=== PATIENT | female | born 1990 | race Caucasian/White ===

== ENCOUNTER 2016-08-28 12:07 | Emergency (ER) | payer OTHER ==
--- NOTE | 2016-08-28 12:53 | DIAGNOSTIC IMAGING REPORT ---
PROCEDURE: XR CHEST 1 VIEW INDICATION: SHORTNESS OF BREATH TECHNIQUE: Single view chest. 1240 hours COMPARISON: 11/28/2014 FINDINGS: The cardiopulmonary contour and central vasculature are stable, within normal limits. The lungs are clear without focal consolidation, pleural effusion or pneumothorax. The osseous structures are intact. IMPRESSION: 1. No evidence of acute cardiopulmonary disease.
--- NOTE | 2016-08-28 16:21 | DIAGNOSTIC IMAGING REPORT ---
PROCEDURE: CTA THORAX WITH CONTRAST INDICATION: SHORTNESS OF BREATH TECHNIQUE: 76 ml of Isovue 370 was injected intravenously and axial images were obtained of the chest with 3D sagittal and coronal MIP reconstructions. COMPARISON: Chest x-ray Performed the same day FINDINGS: Normal opacification of the pulmonary arterial tree without filling defect. The central pulmonary arteries are normal caliber. Thoracic aorta is normal caliber. The great vessels demonstrates normal branching pattern. Heart size is normal. No pericardial effusion. There is mild right hilar adenopathy and a few mildly prominent AP window lymph nodes. The esophagus is normal in caliber without hiatal hernia. There is a small area of alveolar opacity centrally in the medial aspect of the right lower lobe (posterior segment). Mild right lower lobe peribronchial thickening. No pleural effusions or pneumothorax. The airway is patent and branches normally. Osseous structures are intact. The images obtained of the upper abdomen demonstrate hepatic steatosis, post cholecystectomy changes, and slight hepatomegaly. IMPRESSION: 1. No pulmonary embolus. 2. Small infectious/inflammatory findings in the posterior segment right lower lobe. Findings superimposed on mild bronchial thickening. No pleural effusion. 3. Hepatic steatosis and post cholecystectomy. 4. Findings called to the emergency room.
--- NOTE | 2016-08-28 16:46 | ED NURSING NOTES ---
Clinical Report - Nurses [facility] [address] [place] [address] 08/28/2016 12:22 Patient: DEBBY BROWN TRIAGE Triage time 12:15 Aug 28 2016. Acuity: LEVEL 2. Chief Complaint: DIFFICULTY BREATHING. 12:08/28/16. Alert. No acute distress. SEPSIS SCREEN: Sepsis Screen. Negative (no infection suspected/documented). DARCY COMA SCORE: [place] Coma Scale: 15- eyes open spontaneously (4); best verbal response- oriented x 4 (5); best motor response- obeys commands (6). --12:25 Apolonia Orozco 12:08/28/16. BP: 124/72. HR: 121. RR: 48 (regular and rapid). O2 saturation: 96% on room air. Temp: 98.5 F. End tidal CO2: 23 mmHg. Pain level now 0/10. --12:25 Apolonia Orozco <<STRICKEN ENTRY-- 12:08/28/16. BP: 124/72. HR: 121. RR: 48. O2 saturation: 96%. Temp: 98.5 F. Pain level now 0/10. --12:25 Apolonia Orozco --END STRIKE>> Correction. --13:08 Apolonia Orozco. Weight: 99.7 kg stated. Height/Length: 60 inches Per Patient. BMI: 42.9. --12:24 Apolonia Orozco. Medications Depo-Provera Intramuscular. --12:22 Apolonia Orozco Albuterol Sulfate Inhalation (Has been out for a year). --12:22 Apolonia Orozco. Medication/allergy information source: the patient. --12:25 Apolonia Orozco. Allergies None. --12:22 Apolonia Orozco. History Arrived by EMS. Historian: EMS. Accompanied by family. Primary physician ([facility]). This started today. ( Pt reports she woke up with a cough and then became SOB. Pt reports history of asthma, "I used to have it." 1 yo has been sick at home with a cough.). The patient has had low grade fever of 99 F. The patient has had a cough. No chest pain or back pain. 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 PAST MEDICAL HX: Diabetes mellitus. Asthma. No history of chronic obstructive pulmonary disease, congestive heart failure or hypertension. Immunizations: up-to-date. SOCIAL HX: Heavy tobacco smoker (cigarette)- less than 1 pack per day. Occasional alcohol use. No drug use. FALL RISK ASSESSMENT: Fall risk assessment completed. No fall risk identified. NUTRITIONAL RISK ASSESSMENT: The nutritional risk assessment revealed no deficiencies. FUNCTIONAL ASSESSMENT: Functional assessment: no impairments noted. LEARNING NEEDS ASSESSMENT: The learning needs assessment revealed no barriers. SKIN INTEGRITY ASSESSMENT: Skin integrity risk assessment completed. No skin integrity risk identified. --12:25 Apolonia Orozco. PROBLEMS: Diabetes Mellitus. Asthma. --12:23 Apolonia Orozco. ADDITIONAL SURGERIES: Cholecystectomy. . --12:23 Apolonia Orozco. Assessment The patient states feels the same. --12:25 Apolonia Orozco. Interventions ID band on patient. --12:25 Apolonia Orozco. PHYSICAL ASSESSMENT 12:08/28/16. To room via stretcher. Patient gowned. GENERAL / NEURO / PSYCH: Alert. Oriented X 4. Appears in no acute distress. HEENT: Mucous membranes are pink. RESPIRATORY: Moderate respiratory distress. The patient can speak a few words at a time. Cough. No chest wall tenderness. CVS: Cardiac rhythm: sinus tachycardia. Capillary refill less than 2 seconds. GI / : Abdomen soft and nontender. SKIN: Skin is warm and dry. Normal skin turgor. --12:26 Apolonia Orozco. NURSING PROGRESS NOTES 12:20 08/28/2016 Site #1 started via IV in the right antecubital space with an 20g angiocath, with aseptic technique and good blood return; one attempt. Saline lock flushed with 10 mL saline (Done by VEE Drake). --12:27 Apolonia Orozco 12:22 08/28/2016 Site #2 started via IV in the left antecubital space with an 20g angiocath, with aseptic technique and good blood return; one attempt. Blood drawn: rainbow set. Labeled in the presence of the patient and sent to the lab. Saline lock flushed with 10 mL saline (Done by VEE Minor). --12:27 Apolonia Orozco 12:08/28/16. The plan of care for this patient has been created. Oxygen administered by nasal cannula at 2 liters. print room worker, pulse oximeter, end tidal CO2 monitor and NIBP monitor placed on patient; cardiac cath lab radiology technologist- Lead II and V5; monitor alarms on. Patient gowned. Head of bed elevated. Reassurance given. Two patient identifiers checked. Call light placed in reach. Side rails up x 2. Bed placed in lowest position. Brakes of bed on. Patient ready for evaluation- chart flagged and ED physician and PA notified. --12:26 Apolonia Orozco 12:30 08/28/2016 Started bag #1 1000 mL IV Fluids IV NS (Saline); at 1000 mL/hr over 1 hour(s) via site #2 via IV pump. Allergies verified and confirmed 5 rights. IV patency established. IV site checked: no pain, redness, or swelling. IV flushed thoroughly pre- and post-medication administration. --12:35 Apolonia Orozco 12:32 08/28/2016 Ativan (LORazepam) IVP 1 mg given over 30 second(s) via site #2. Allergies verified, confirmed 5 rights and sedative warning given to the patient and patient's family. IV patency established. IV site checked: no pain, redness, or swelling. IV flushed thoroughly pre- and post-medication administration. IVP given by RN. --12:36 Apolonia Orozco 12:36 08/28/16. Portable chest x-ray. --12:36 Apolonia Orozco EKG time: (12:50 PM). EKG was performed by a keysha and shown to the ED physician. --12:52 Juan Miguel Aguirre 13:07 08/28/16. --13:07 Apolonia Orozco 13:08/28/16. BP: 132/48. HR: 114. RR: 27. O2 saturation: 97% on nasal cannula at 2 liters/minute. End tidal CO2: 26 mmHg. Pain level now: 0/10. --13:07 Apolonia Orozco 13:08 08/28/16. Reassessment after medication administered. Overall patient status is improved- she states feels better. RESPIRATORY: No respiratory distress. CVS: Cardiac rhythm: sinus tachycardia. SKIN: Skin is warm and dry. Skin color within normal limits. --13:08 Apolonia Orozco 13:38 08/28/2016 IV Fluids IV NS Discontinued: bag #1 infused. Total amount infused: 1000 mL. --13:38 Apolonia Orozco 13:38 08/28/16. End tidal CO2: 33mmHg. --13:38 Apolonia Orozco 14:14 08/28/16. BP: 130/80. HR: 115. O2 saturation: 97% on room air. --14:15 Apolonia Orozco 15:07 08/28/16. Patient transported to [place] by stretcher with tech. (15:07 Aug 28 2016). --15:07 Apolonia Orozco 16:02 08/28/16. Care transferred and report given (Gabriel Castrejon RN). --16:02 Apolonia Orozco 16:30 08/28/16. BP: 140/76. HR: 111. RR: 18. O2 saturation: 95% on room air. --16:39 Gabriel Santos RMaria Esther 16:41 08/28/2016 Started 2 gm of Rocephin (CefTRIAXone Sodium) IVPB in bag #1 50 mL; at 50 mL/hr over 20 minute(s) via site #2; Allergies verified and confirmed 5 rights. IV patency established. IV site checked: no pain, redness, or swelling. IV flushed thoroughly pre- and post-medication administration. --16:46 Gabriel Santos RMaria Esther 16:45 08/28/2016 Zithromax PO Tablets 500 mg given. Confirmed 5 rights. --16:50 Gabriel Santos R.N. 17:25 08/28/2016 Acetaminophen (APAP) PO Tablets 650 mg given. Allergies verified and confirmed 5 rights. --18:55 Gabriel Santos R.N. DISPOSITION / DISCHARGE Departure time: 1730. --18:44 Gabriel Santos R.N. <<STRICKEN ENTRY-- 18:25 08/28/16. BP: 150/88. HR: 115. RR: 18. O2 saturation: 97% on room air. Temp: 100.9 F. Pain level now: 07/12. Additional comments: EdMD advised of elevated temp--orders taken. --18:46 Gabriel Santos R.N. --END STRIKE>> Correction --18:46 Gabriel Santos R.N. 17:25 08/28/16. BP: 150/88. HR: 115. RR: 18. O2 saturation: 97% on room air. Temp: 100.9 F. Pain level now: 07/12. --18:51 Gabriel Santos R.N. 17:30. Condition at departure: improved. No learning barriers present. Discharge instructions provided and reviewed with the patient and parent. Reviewed medication(s) (prescription given to pt). Reviewed referral to family practice for followup. Patient verbalized understanding. Written instructions provided in [place]. The patient was discharged by the physician. She was discharged home and accompanied by parent. She left the Emergency Department ambulatory and via private vehicle. Parent driving. --18:53 Gabriel Santos R.N. Locked/Released at 08/28/2016 18:55 by Gabriel Santos R.N.
--- NOTE | 2016-08-28 16:46 | ED CLINICAL REPORT ---
Clinical Report - Physicians/Mid Levels [facility] [address] [place] [address] 08/28/2016 12:22 Patient: DEBBY BROWN Time Seen: 1217. Arrived- By ambulance. Historian- patient and EMS personnel. HISTORY OF PRESENT ILLNESS Chief Complaint: DYSPNEA and HISTORY OF ASTHMA. This started today and is still present. The dyspnea is described as moderate. The patient has had a mild dry cough. No sputum production, orthopnea or chest pain or discomfort. See nurses notes for current asthma threapy. Asthma triggers: infections and irritants. Similar symptoms previously: Recent medical care: The patient was seen recently at another facility in a clinic. ( Pt was sent by the urgent care clinic.). REVIEW OF SYSTEMS No sore throat, sinus drainage, fever, chills or muscle aches. No headache, palpitations, calf pain, nausea or abdominal pain. No diarrhea, black stools, difficulty with urination, skin rash or enlarged lymph nodes. No pedal edema, vomiting, bloody stools or joint pain. The patient has had a nasal discharge. Denies current . All systems otherwise negative, except as recorded above. PAST HISTORY Problems: Diabetes Mellitus. Asthma. Epistaxis. Ureterolithiasis. LNMP - Last Normal Menstrual Period. Near Syncope. Threatened . . Preeclampsia. Additional Surgeries: Cholecystectomy. . Medications: Albuterol Sulfate Inhalation (Has been out for a year). Depo-Provera Intramuscular. Allergies: None. SOCIAL HISTORY Smoker- current status unknown. Occasional alcohol use. No drug use. ADDITIONAL NOTES The nursing notes have been reviewed. PHYSICAL EXAM Vital Signs: 08/28/2016 12:25 BP: 124/72. HR: 121. RR: 48. O2 saturation: 96%. Temp: 98.5 F. End tidal CO2: 23 mmHg. Have been reviewed. Appearance: Alert. Anxious. Patient in mild distress. Eyes: Pupils equal, round and reactive to light. Eyes normal inspection. ENT: Nose normal. Neck: Normal inspection. Neck supple. CVS: Tachycardia. Heart sounds normal. Pulses normal. Respiratory: Mild respiratory distress with tachypnea (PT is able to speak in full sentences, but is breathing very rapidly otherwise.). Breath sounds normal. Abdomen: Soft and nontender. Back: Normal inspection. Skin: Skin warm and dry. Normal skin color. No rash. Normal skin turgor. Extremities: Extremities exhibit normal ROM. No lower extremity edema. Neuro: Oriented X 3. No motor deficit. No sensory deficit. LABS, X-RAYS, AND EKG EKG: EKG time: (1250). No acute ischemia. Rate: 115. Tachycardia. Normal P waves. Normal CHRIS. Normal QRS complex. Normal axis. Normal ST and T waves, QT and QTc. Prior EKG unavailable. The study has been interpreted contemporaneously by me. The study has been independently viewed by me. The EKG appears to be a good tracing. I agree with and confirm the computer reading of the EKG. Rhythm Strip #1: Time: (1223). Sinus tachycardia. Regular rhythm. Narrow QRS complexes. No ectopy. Conduction normal. Normal ST segments and T waves. The study was interpreted by me. Chest X-ray: No acute disease. Normal lung markings present. Normal heart size. Mediastinum normal. Great vessels normal. Soft tissues normal. No infiltrate. No fracture. No bony lesion present. Views: AP (portable). Technique: good. The X-rays were independently viewed by me, interpreted by the radiologist and contemporaneously by me and discussed with the radiologist. Prior films were not available for comparison. Chest CT: Small infiltrate in the right lower lobe. Consistent with pneumonia. Great vessels normal. Mediastinum normal. No fractures noted. No pulmonary embolism. Chest CT performed with contrast. The study was independently viewed by me, interpreted by the radiologist and contemporaneously by me and discussed with the radiologist. Prior studies were not available for comparison. Laboratory Tests: CBC w Diff: (JORDAN: 08/28/2016 12:35) ( MsgRcvd 08/28/2016 12:49) Final results Test Result Flag Units (Reference) WHITE BLOOD COUNT 8.0 K/uL (4.5-11.5) RED BLOOD COUNT 4.80 M/uL (4.00-5.20) HEMOGLOBIN 13.7 gm/dL (12.0-16.0) HEMATOCRIT 41.7 % (36.0-46.0) MEAN CELL VOLUME 87 fL (80-100) MEAN CORPUSCULAR HGB 29 pg (26-34) MEAN CORPUSCULAR HGB CONC 33 g/dL (31-37) RED CELL DISTRIBUTION WIDTH 13.7 % (11.6-14.8) PLATELET COUNT 212 K/uL (150-400) NEUTROPHIL % 59.7 % (50-75) LYMPH % 30.4 % (25-40) MONO % 7.3 % (3-14) EOSINOPHIL % 2.2 % (0-4) BASOPHIL % 0.4 % (0-2) PT with INR: (JORDAN: 08/28/2016 12:35) ( [facility] 08/28/2016 13:12) Final results Test Result Flag Units (Reference) INR 0.9 (0.8-1.2) Low Intensity Therapy: INR 1.5-2.0 PT range 18.5-23.1Mod.Intensity Therapy: INR 2.0-3.0 PT range 23.1-31.5High Intensity Therapy: INR 2.5-3.5 PT range 27.4-35.5High Intensity Therapy 2: INR 3.0-4.0 PT range 31.5-39.3 D-DIMER QUANTITATIVE 0.27 ug/mLFEU (0.27-0.52) The primary value of this quantitative assay relates toits negative predictive value (i.e. exclusion) of pulmonaryembolism/deep vein thrombosis/DIC.Elevated levels of d-dimer may also occur with:, age, cancer, inflammation, liver disease,post-op, infection, hematoma, coronary disease, peripheralarteriopathy, bleeding disorders and thrombolytic treatment.Results should be correlated with other clinical andradiological data.Testing Methodology: Latex Immunoassay BNP: (JORDAN: 08/28/2016 12:35) ( [facility] 08/28/2016 13:11) Final results Test Result Flag Units (Reference) B-TYPE NATRIURETIC PEPTIDE < 5.0 L pg/ml (5-100) Magnesium: (JORDAN: 08/28/2016 12:35) ( Mscvd 08/28/2016 13:20) IP Test Result Flag Units (Reference) GLUCOSE 336 H mg/dL (70-110) BUN 13 mg/dL (7-18) CREATININE 0.8 mg/dL (0.6-1.3) Estimated GFR >60 mL/min Estimated GFR- >60 mL/min Note: Persistent reduction over 3 months in eGFR<60 mL/min/1.73 m2 defines CKD. Patients with eGFR values>=60 mL/min/1.73 m2 may also have CKD if evidence ofpersistent proteinuria. Additional information may be foundat www.[email or web address].org. SODIUM 139 mmol/L (136-145) POTASSIUM 3.3 L mmol/L (3.5-5.1) CHLORIDE 101 mmol/L (98-107) CARBON DIOXIDE 18 L mmol/L (21-32) CALCIUM 9.0 mg/dL (8.5-10.1) TOTAL PROTEIN 7.6 g/dL (6.4-8.2) ALBUMIN 3.7 g/dL (3.3-5.0) BILIRUBIN, TOTAL 0.2 mg/dL (0.0-1.0) ALKALINE PHOSPHATASE 91 U/L (46-116) AST (SGOT) 49 H U/L (15-37) ALT (SGPT) 55 U/L (12-78) MAGNESIUM 1.7 L mg/dL (1.8-2.4) CPK 135 U/L (24-260) TROPONIN I 0.05 ng/mL (0.00-1.5) TROPONIN REFERENCE RANGE:<0.1 NEGATIVE0.1-1.5 INDETERMINANT>1.5 POSITIVE . Pulse Oximetry: 08/28/2016 12:25 O2 saturation: 96%. (FIO2 - room air). Interpretation: normal. PROGRESS AND PROCEDURES Course of Care: PT was evaluated by me, immediately upon arrival in the ED. Pt's O2 saturation was normal, her lungs were clear, and she was speaking comfortably, but her HR and RR were both elevated. I did give the pt a dose of Ativan, and pt's RR did come down to the 30's, but her HR remained in the 120's. CXR was unremarkable. CTA was performed out of concern for the pt's sustained tachycardia and tachypnea, in the face of a normal x-ray and clear lungs. This showed a very small RLL infiltrate, but no PE. Pt was treated with abx for this. I did feel that she was stable for d/c home. Patient counseled in person regarding the patient's stable condition, test results, diagnosis and need for follow-up. Concerns were addressed. Old medical records reviewed. Disposition: Discharged. Condition: stable and improved. CLINICAL IMPRESSION Bacterial pneumonia. Vital signs recorded and reviewed; empiric antibiotics given in the ED. INSTRUCTIONS Do not work tomorrow. Warnings: SEDATIVE MEDICATION: You were given sedative medication during your visit. Do not drive or operate dangerous machinery for 6 hours. GENERAL WARNINGS: Return or contact your physician immediately if your condition worsens or changes unexpectedly, if not improving as expected, or if other problems arise. Your Current Medications: CONTINUE TAKING THE FOLLOWING MEDICATIONS: Albuterol Sulfate Inhalation : Has been out for a year. Depo-Provera Intramuscular. Prescription Medications: Albuterol HFA oral inhaler: inhale 2 puffs every 4 hours as needed for wheezing, difficulty breathing or shortness of breath. Dispense one (1) unit. No refill. Robitussin A-C cough syrup take two (2) teaspoons orally every 6 hours as needed for cough. Dispense one hundred twenty (120) mL. No refill. Substitution is permissible. Zithromax Z-Edi: Take according to package instructions 2 orally today, followed by 1 orally every day for the next 4 days. Total course 5 days. No refills. Substitution is permissible. Follow-up: Follow up with your doctor in seven days if not better. Understanding of the discharge instructions verbalized by patient. (Electronically signed by Merle Aguilar MD 09/02/2016 5:30)
--- NOTE | 2016-08-28 16:46 | ED NURSING NOTES ---
Clinical Report - Nurses [facility] [address] [place] [address] 08/28/2016 12:22 Patient: DEBBY BROWN TRIAGE Triage time 12:15 Aug 28 2016. Acuity: LEVEL 2. Chief Complaint: DIFFICULTY BREATHING. 12:08/28/16. Alert. No acute distress. SEPSIS SCREEN: Sepsis Screen. Negative (no infection suspected/documented). DARCY COMA SCORE: [place] Coma Scale: 15- eyes open spontaneously (4); best verbal response- oriented x 4 (5); best motor response- obeys commands (6). --12:25 Apolonia Orozco 12:08/28/16. BP: 124/72. HR: 121. RR: 48 (regular and rapid). O2 saturation: 96% on room air. Temp: 98.5 F. End tidal CO2: 23 mmHg. Pain level now 0/10. --12:25 Apolonia Orozco <<STRICKEN ENTRY-- 12:08/28/16. BP: 124/72. HR: 121. RR: 48. O2 saturation: 96%. Temp: 98.5 F. Pain level now 0/10. --12:25 Apolonia Orozco --END STRIKE>> Correction. --13:08 Apolonia Orozco. Weight: 99.7 kg stated. Height/Length: 60 inches Per Patient. BMI: 42.9. --12:24 Apolonia Orozco. Medications Depo-Provera Intramuscular. --12:22 Apolonia Orozco Albuterol Sulfate Inhalation (Has been out for a year). --12:22 Apolonia Orozco. Medication/allergy information source: the patient. --12:25 Apolonia Orozco. Allergies None. --12:22 Apolonia Orozco. History Arrived by EMS. Historian: EMS. Accompanied by family. Primary physician ([facility]). This started today. ( Pt reports she woke up with a cough and then became SOB. Pt reports history of asthma, "I used to have it." 1 yo has been sick at home with a cough.). The patient has had low grade fever of 99 F. The patient has had a cough. No chest pain or back pain. 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 PAST MEDICAL HX: Diabetes mellitus. Asthma. No history of chronic obstructive pulmonary disease, congestive heart failure or hypertension. Immunizations: up-to-date. SOCIAL HX: Heavy tobacco smoker (cigarette)- less than 1 pack per day. Occasional alcohol use. No drug use. FALL RISK ASSESSMENT: Fall risk assessment completed. No fall risk identified. NUTRITIONAL RISK ASSESSMENT: The nutritional risk assessment revealed no deficiencies. FUNCTIONAL ASSESSMENT: Functional assessment: no impairments noted. LEARNING NEEDS ASSESSMENT: The learning needs assessment revealed no barriers. SKIN INTEGRITY ASSESSMENT: Skin integrity risk assessment completed. No skin integrity risk identified. --12:25 Apolonia Orozco. PROBLEMS: Diabetes Mellitus. Asthma. --12:23 Apolonia Orozco. ADDITIONAL SURGERIES: Cholecystectomy. . --12:23 Apolonia Orozco. Assessment The patient states feels the same. --12:25 Apolonia Orozco. Interventions ID band on patient. --12:25 Apolonia Orozco. PHYSICAL ASSESSMENT 12:08/28/16. To room via stretcher. Patient gowned. GENERAL / NEURO / PSYCH: Alert. Oriented X 4. Appears in no acute distress. HEENT: Mucous membranes are pink. RESPIRATORY: Moderate respiratory distress. The patient can speak a few words at a time. Cough. No chest wall tenderness. CVS: Cardiac rhythm: sinus tachycardia. Capillary refill less than 2 seconds. GI / : Abdomen soft and nontender. SKIN: Skin is warm and dry. Normal skin turgor. --12:26 Apolonia Orozco. NURSING PROGRESS NOTES 12:20 08/28/2016 Site #1 started via IV in the right antecubital space with an 20g angiocath, with aseptic technique and good blood return; one attempt. Saline lock flushed with 10 mL saline (Done by VEE Drake). --12:27 Apolonia Orozco 12:22 08/28/2016 Site #2 started via IV in the left antecubital space with an 20g angiocath, with aseptic technique and good blood return; one attempt. Blood drawn: rainbow set. Labeled in the presence of the patient and sent to the lab. Saline lock flushed with 10 mL saline (Done by VEE Minor). --12:27 Apolonia Orozco 12:08/28/16. The plan of care for this patient has been created. Oxygen administered by nasal cannula at 2 liters. hearing aid assistant, pulse oximeter, end tidal CO2 monitor and NIBP monitor placed on patient; inker machine- Lead II and V5; monitor alarms on. Patient gowned. Head of bed elevated. Reassurance given. Two patient identifiers checked. Call light placed in reach. Side rails up x 2. Bed placed in lowest position. Brakes of bed on. Patient ready for evaluation- chart flagged and ED physician and PA notified. --12:26 Apolonia Orozco 12:30 08/28/2016 Started bag #1 1000 mL IV Fluids IV NS (Saline); at 1000 mL/hr over 1 hour(s) via site #2 via IV pump. Allergies verified and confirmed 5 rights. IV patency established. IV site checked: no pain, redness, or swelling. IV flushed thoroughly pre- and post-medication administration. --12:35 Apolonia Orozco 12:32 08/28/2016 Ativan (LORazepam) IVP 1 mg given over 30 second(s) via site #2. Allergies verified, confirmed 5 rights and sedative warning given to the patient and patient's family. IV patency established. IV site checked: no pain, redness, or swelling. IV flushed thoroughly pre- and post-medication administration. IVP given by RN. --12:36 Apolonia Orozco 12:36 08/28/16. Portable chest x-ray. --12:36 Apolonia Orozco EKG time: (12:50 PM). EKG was performed by a keysha and shown to the ED physician. --12:52 Juan Miguel Aguirre 13:07 08/28/16. --13:07 Apolonia Orozco 13:08/28/16. BP: 132/48. HR: 114. RR: 27. O2 saturation: 97% on nasal cannula at 2 liters/minute. End tidal CO2: 26 mmHg. Pain level now: 0/10. --13:07 Apolonia Orozco 13:08 08/28/16. Reassessment after medication administered. Overall patient status is improved- she states feels better. RESPIRATORY: No respiratory distress. CVS: Cardiac rhythm: sinus tachycardia. SKIN: Skin is warm and dry. Skin color within normal limits. --13:08 Apolonia Orozco 13:38 08/28/2016 IV Fluids IV NS Discontinued: bag #1 infused. Total amount infused: 1000 mL. --13:38 Apolonia Orozco 13:38 08/28/16. End tidal CO2: 33mmHg. --13:38 Apolonia Orozco 14:14 08/28/16. BP: 130/80. HR: 115. O2 saturation: 97% on room air. --14:15 Apolonia Orozco 15:07 08/28/16. Patient transported to [place] by stretcher with tech. (15:07 Aug 28 2016). --15:07 Apolonia Orozco 16:02 08/28/16. Care transferred and report given (Gabriel Castrejon RN). --16:02 Apolonia Orozco 16:30 08/28/16. BP: 140/76. HR: 111. RR: 18. O2 saturation: 95% on room air. --16:39 Gabriel Santos RMaria Esther 16:41 08/28/2016 Started 2 gm of Rocephin (CefTRIAXone Sodium) IVPB in bag #1 50 mL; at 50 mL/hr over 20 minute(s) via site #2; Allergies verified and confirmed 5 rights. IV patency established. IV site checked: no pain, redness, or swelling. IV flushed thoroughly pre- and post-medication administration. --16:46 Gabriel Santos RMaria Esther 16:45 08/28/2016 Zithromax PO Tablets 500 mg given. Confirmed 5 rights. --16:50 Gabriel Santos R.N. 17:25 08/28/2016 Acetaminophen (APAP) PO Tablets 650 mg given. Allergies verified and confirmed 5 rights. --18:55 Gabriel Santos R.N. DISPOSITION / DISCHARGE Departure time: 1730. --18:44 Gabriel Santos R.N. <<STRICKEN ENTRY-- 18:25 08/28/16. BP: 150/88. HR: 115. RR: 18. O2 saturation: 97% on room air. Temp: 100.9 F. Pain level now: 07/12. Additional comments: EdMD advised of elevated temp--orders taken. --18:46 Gabriel Santos R.N. --END STRIKE>> Correction --18:46 Gabriel Santos R.N. 17:25 08/28/16. BP: 150/88. HR: 115. RR: 18. O2 saturation: 97% on room air. Temp: 100.9 F. Pain level now: 07/12. --18:51 Gabriel Santos R.N. 17:30. Condition at departure: improved. No learning barriers present. Discharge instructions provided and reviewed with the patient and parent. Reviewed medication(s) (prescription given to pt). Reviewed referral to family practice for followup. Patient verbalized understanding. Written instructions provided in Swazi. The patient was discharged by the physician. She was discharged home and accompanied by parent. She left the Emergency Department ambulatory and via private vehicle. Parent driving. --18:53 Gabriel Santos R.N. Locked/Released at 08/28/2016 18:55 by Gabriel Santos R.N.
--- NOTE | 2016-08-28 16:47 | ED ORDER SUMMARY ---
..... Patient: DEBBY BROWN OrderSheet [facility] VisitID: [id number] [place] [address] 26y, F Registration Date/Time: 08/28/2016 ORDER SHEET Weight: 99.7 kg (stated) Allergies: None GENERAL ORDERS: Chest 1V Urgent (12:08/28/2016 Luba HILL) (Ack 12:36 Mart) (12:47 ASchmuck) Maintenance Service Supervisor (Continuous) (12:08/28/2016 Luba HILL) (12:27 ASchmuck) Acetone, Serum Urgent (12:08/28/2016 Luba HILL) (Ack 12:36 Mart) (12:47 ASchmuck) D-Dimer Urgent (12:08/28/2016 Luba HILL) (Ack 12:36 Mart) (12:47 ASchmuck) BNP Urgent (12:08/28/2016 Luba HILL) (Ack 12:36 Mart) (12:47 ASchmuck) Cardiac Panel Stat (12:08/28/2016 Luba HILL) (Ack 12:36 Mart) (12:47 ASchmuck) TSH Urgent (12:08/28/2016 Luba HILL) (Ack 12:36 Mart) (12:47 ASchmuck) PT with INR Urgent (12:08/28/2016 Luba HILL) (Ack 12:36 Mart) (12:47 ASchmuck) Oxygen (2 L/min) (NC) (12:08/28/2016 Luba HILL) (12:27 ASchmuck) Pulse oximeter (12:08/28/2016 Luba HILL) (12:27 ASchmuck) EKG - ER Stat (12:08/28/2016 Luba HILL) (12:52 LTapper) CTA Thorax w Cont (No) (N/A) Urgent (14:45 08/28/2016 Luba HILL) (Ack 14:53 Mart) (15:42 ASchmuck) MEDICATION ORDERS: Zithromax PO 500 mg (NOW) (16:37 08/28/2016 Luba HILL) (16:50 Albert Perez) Acetaminophen PO 650 mg (NOW) (18:53 08/28/2016 Albert Perez verbal order read back to Luba HILL) (18:55 Albert Perez) IV FLUIDS: IV NS : initial bolus 1000 mL (1000 mL/hr), then none - (NOW) (12:25 08/28/2016 Luba HILL) (12:35 ASchmuck) Ativan IV 1 mg (HIGH ALERT MEDICATION, NOW) (12:26 08/28/2016 Luba HILL) (12:36 ASchmuck) Rocephin IV 2 gm/50mL (NOW) (16:37 08/28/2016 Luba HILL) (16:46 Albert Perez) ORDER SHEET NOTES: [Electronically signed by Gabriel Santos R.N. (18:55 08/28/2016)] [Electronically signed by Merle Aguilar MD (05:30 09/02/2016)] [Electronically locked/signed by Gabriel Santos R.N. (18:55 08/28/2016)]
--- NOTE | 2016-08-28 16:47 | ED ORDER SUMMARY ---
..... Patient: DEBBY BROWN OrderSheet [facility] VisitID: [id number] [place] [address] 26y, F Registration Date/Time: 08/28/2016 ORDER SHEET Weight: 99.7 kg (stated) Allergies: None GENERAL ORDERS: Chest 1V Urgent (12:08/28/2016 Luba HILL) (Ack 12:36 Mart) (12:47 ASchmuck) Railroad Worker (Continuous) (12:08/28/2016 Luba HILL) (12:27 ASchmuck) Acetone, Serum Urgent (12:08/28/2016 Luba HILL) (Ack 12:36 Mart) (12:47 ASchmuck) D-Dimer Urgent (12:08/28/2016 Luba HILL) (Ack 12:36 Mart) (12:47 ASchmuck) BNP Urgent (12:08/28/2016 Luba HILL) (Ack 12:36 Mart) (12:47 ASchmuck) Cardiac Panel Stat (12:08/28/2016 Luba HILL) (Ack 12:36 Mart) (12:47 ASchmuck) TSH Urgent (12:08/28/2016 Luba HILL) (Ack 12:36 Mart) (12:47 ASchmuck) PT with INR Urgent (12:08/28/2016 Luba HILL) (Ack 12:36 Mart) (12:47 ASchmuck) Oxygen (2 L/min) (NC) (12:08/28/2016 Luba HILL) (12:27 ASchmuck) Pulse oximeter (12:08/28/2016 Luba HILL) (12:27 ASchmuck) EKG - ER Stat (12:08/28/2016 Luba HILL) (12:52 LTapper) CTA Thorax w Cont (No) (N/A) Urgent (14:45 08/28/2016 Luba HILL) (Ack 14:53 Mart) (15:42 ASchmuck) MEDICATION ORDERS: Zithromax PO 500 mg (NOW) (16:37 08/28/2016 Luba HILL) (16:50 Albert Perez) Acetaminophen PO 650 mg (NOW) (18:53 08/28/2016 Albert Perez verbal order read back to Luba HILL) (18:55 Albert Perez) IV FLUIDS: IV NS : initial bolus 1000 mL (1000 mL/hr), then none - (NOW) (12:25 08/28/2016 Luba HILL) (12:35 ASchmuck) Ativan IV 1 mg (HIGH ALERT MEDICATION, NOW) (12:26 08/28/2016 Luba HILL) (12:36 ASchmuck) Rocephin IV 2 gm/50mL (NOW) (16:37 08/28/2016 Luba HILL) (16:46 Albert Perez) ORDER SHEET NOTES: [Electronically signed by Gabriel Santos R.N. (18:55 08/28/2016)] [Electronically signed by Merle Aguilar MD (05:30 09/02/2016)] [Electronically locked/signed by Gabriel Santos R.N. (18:55 08/28/2016)]
--- NOTE | 2016-09-02 05:30 | ED MED RECONCILIATION SUMMARY ---
Patient: DEBBY BROWN Medication Reconciliation Report [facility] VisitID: [id number] [place] [address] 26y, F Registration Date/Time: 08/28/2016 Weight: 99.7 kg Height/Length: 60 in. BMI: 42.9 ALLERGIES: None The patient's Home Medications are listed below: CONTINUE TAKING THE FOLLOWING MEDICATIONS: Albuterol Sulfate Inhalation, Has been out for a year Depo-Provera Intramuscular The source(s) of the original Home Medication information: patient The following Medications were given to the patient in the Emergency Department: IV NS IV Fluids bolus 0, then 1000 mL/hr, administered: 08/28/2016 12:30:00 PM Ativan [IVP] IVP 1 mg, administered: 08/28/2016 12:32:00 PM Rocephin [IVPB] IVPB bolus 0, then 2 gm 50 mL/hr, administered: 08/28/2016 4:41:00 PM Zithromax [PO] PO 500 mg, administered: 08/28/2016 4:45:00 PM Acetaminophen [PO] PO 650 mg, administered: 08/28/2016 5:25:00 PM The following Medications were prescribed to the patient: Albuterol HFA oral inhaler: inhale 2 puffs every 4 hours as needed for wheezing, difficulty breathing or shortness of breath. Dispense one (1) unit. No refill. -- Merle Aguilar MD Robitussin A-C cough syrup take two (2) teaspoons orally every 6 hours as needed for cough. Dispense one hundred twenty (120) mL. No refill. Substitution is permissible. -- Merle Aguilar MD Zithromax Z-Edi: Take according to package instructions 2 orally today, followed by 1 orally every day for the next 4 days. Total course 5 days. No refills. Substitution is permissible. -- Merle Aguilar MD
--- NOTE | 2016-09-02 05:30 | ED MAR SUMMARY ---
..... Medication Administration Record [facility] [address] [place] [address] Patient: DEBBY BROWN Visit ID: [id number] 26y, F Weight: 99.7 kg Height/Length: 60 in BMI: 42.9 ALLERGIES: None Start 12:30 08/28/2016 Apolonia Orozco,, Stop 13:38 08/28/2016 Apolonia Orozco, Medication Administered: IV NS (SALINE), Dose: IV Fluids over 1 hour(s), Rate: 1000 mL/hr, Dispensed: 1000 mL bag, Site: #2 left AC. Medication Ordered: IV NS : initial bolus 1000 mL (1000 mL/hr), then none - (NOW). Given 12:32 08/28/2016 Apolonia Orozco, Medication Administered: ATIVAN [IVP] (LORAZEPAM), Dose: 1 mg IVP over 30 second(s), Site: #2 left AC. Medication Ordered: Ativan IV 1 mg (HIGH ALERT MEDICATION, NOW). Start 16:41 08/28/2016 Gabriel Santos RGenesisN. Medication Administered: ROCEPHIN [IVPB] (CEFTRIAXONE SODIUM), Dose: 2 gm IVPB over 20 minute(s), Rate: 50 mL/hr, Dispensed: 50 mL bag, Site: #2 left AC. Medication Ordered: Rocephin IV 2 gm/50mL (NOW). Given 16:45 08/28/2016 Gabriel Santos R.N. Medication Administered: ZITHROMAX [PO], Dose: 500 mg Tablets PO. Medication Ordered: Zithromax PO 500 mg (NOW). Given 17:25 08/28/2016 Gabriel Santos R.N. Medication Administered: ACETAMINOPHEN [PO] (APAP), Dose: 650 mg Tablets PO. Medication Ordered: Acetaminophen PO 650 mg (NOW).
--- NOTE | 2016-09-02 05:30 | ED DISCHARGE INSTRUCTIONS ---
Patient: DEBBY BROWN General Instructions [facility] VisitID: [id number] [place] [address] 26y, F Registration Date/Time: 08/28/2016 Bacterial pneumonia. Vital signs recorded and reviewed; empiric antibiotics given in the ED. INSTRUCTIONS Do not work tomorrow. Warnings: SEDATIVE MEDICATION: You were given sedative medication during your visit. Do not drive or operate dangerous machinery for 6 hours. GENERAL WARNINGS: Return or contact your physician immediately if your condition worsens or changes unexpectedly, if not improving as expected, or if other problems arise. Your Current Medications: CONTINUE TAKING THE FOLLOWING MEDICATIONS: Albuterol Sulfate Inhalation : Has been out for a year. Depo-Provera Intramuscular. Prescription Medications: Albuterol HFA oral inhaler: inhale 2 puffs every 4 hours as needed for wheezing, difficulty breathing or shortness of breath. Dispense one (1) unit. No refill. Robitussin A-C cough syrup take two (2) teaspoons orally every 6 hours as needed for cough. Dispense one hundred twenty (120) mL. No refill. Substitution is permissible. Zithromax Z-Edi: Take according to package instructions 2 orally today, followed by 1 orally every day for the next 4 days. Total course 5 days. No refills. Substitution is permissible. Follow-up: Follow up with your doctor in seven days if not better. Understanding of the discharge instructions verbalized by patient. ADDITIONAL INFORMATION Pneumonia (Adult) Pneumonia is an infection deep within the lung, in the small air sacs (alveoli). It may be due to a virus or bacteria and is usually treated with an antibiotic. Severe cases require treatment in the hospital. Milder cases can be treated at home. Symptoms usually start to improve during the first2 days of treatment. Home Care: Rest at home for the first 23 days or until you feel stronger. When resuming activity, dont let yourself become overly tired. Avoid exposure to cigarette smoke (yours or others). You may use acetaminophen (Tylenol) or ibuprofen (Motrin, Advil) to control fever or pain, unless another medicine was prescribed. [NOTE: If you have chronic liver or kidney disease or ever had a stomach ulcer or GI bleeding, talk with your doctor before using these medicines.] (Aspirin should never be used in anyone under 18 years of age who is ill with a fever. It may cause severe liver damage.) Your appetite may be poor so a light diet is fine. Keep well hydrated by drinking 68 glasses of fluids per day (water, sport drinks such as Gatorade, sodas without caffeine, juices, tea, soup, etc.). This will help loosen secretions in the lung, making it easier for you to cough up the phlegm (sputum). If you also have heart or kidney disease, check with your doctor before you drink extra amounts of fluids. Finish all antibiotic medicine prescribed, even if you are feeling better after a few days. Follow Up with your doctor in the next 23 days (or as advised) to be sure you are responding properly to the medicine. [NOTE: If you are age 65 or older, or if you have chronic lung disease (asthma, emphysema or COPD), we recommendthe pneumococcal vaccination and a yearlyinfluenzavaccination(flu-shot) every . Ask your doctor about this.] Get Prompt Medical Attention if any of the following occur: Not getting better within the first 48 hours of treatment Increasing shortness of breath or rapid breathing (over 25 breaths/minute) Coughing up blood or increasing chest pain with breathing Fever of 100.4F (38C) oral or higher, not better with fever medication Increasing weakness, dizziness or fainting Increasing thirst or dry mouth Sinus pain, headache or a stiff neck Chest pain not caused by coughing You have been given the following additional information: Pneumonia (Adult) Do not work tomorrow. (Electronically signed by Merle Aguilar MD 09/02/2016 5:30)
--- NOTE | 2016-09-02 05:30 | ED MED RECONCILIATION SUMMARY ---
Patient: DEBBY BROWN Medication Reconciliation Report [facility] VisitID: [id number] [place] [address] 26y, F Registration Date/Time: 08/28/2016 Weight: 99.7 kg Height/Length: 60 in. BMI: 42.9 ALLERGIES: None The patient's Home Medications are listed below: CONTINUE TAKING THE FOLLOWING MEDICATIONS: Albuterol Sulfate Inhalation, Has been out for a year Depo-Provera Intramuscular The source(s) of the original Home Medication information: patient The following Medications were given to the patient in the Emergency Department: IV NS IV Fluids bolus 0, then 1000 mL/hr, administered: 08/28/2016 12:30:00 PM Ativan [IVP] IVP 1 mg, administered: 08/28/2016 12:32:00 PM Rocephin [IVPB] IVPB bolus 0, then 2 gm 50 mL/hr, administered: 08/28/2016 4:41:00 PM Zithromax [PO] PO 500 mg, administered: 08/28/2016 4:45:00 PM Acetaminophen [PO] PO 650 mg, administered: 08/28/2016 5:25:00 PM The following Medications were prescribed to the patient: Albuterol HFA oral inhaler: inhale 2 puffs every 4 hours as needed for wheezing, difficulty breathing or shortness of breath. Dispense one (1) unit. No refill. -- Merle Aguilar MD Robitussin A-C cough syrup take two (2) teaspoons orally every 6 hours as needed for cough. Dispense one hundred twenty (120) mL. No refill. Substitution is permissible. -- Merle Aguilar MD Zithromax Z-Edi: Take according to package instructions 2 orally today, followed by 1 orally every day for the next 4 days. Total course 5 days. No refills. Substitution is permissible. -- Merle Aguilar MD
--- NOTE | 2016-09-02 05:30 | ED MAR SUMMARY ---
..... Medication Administration Record [facility] [address] [place] [address] Patient: DEBBY BROWN Visit ID: [id number] 26y, F Weight: 99.7 kg Height/Length: 60 in BMI: 42.9 ALLERGIES: None Start 12:30 08/28/2016 Apolonia Orozco,, Stop 13:38 08/28/2016 Apolonia Orozco, Medication Administered: IV NS (SALINE), Dose: IV Fluids over 1 hour(s), Rate: 1000 mL/hr, Dispensed: 1000 mL bag, Site: #2 left AC. Medication Ordered: IV NS : initial bolus 1000 mL (1000 mL/hr), then none - (NOW). Given 12:32 08/28/2016 Apolonia Orozco, Medication Administered: ATIVAN [IVP] (LORAZEPAM), Dose: 1 mg IVP over 30 second(s), Site: #2 left AC. Medication Ordered: Ativan IV 1 mg (HIGH ALERT MEDICATION, NOW). Start 16:41 08/28/2016 Gabriel Santos RGenesisN. Medication Administered: ROCEPHIN [IVPB] (CEFTRIAXONE SODIUM), Dose: 2 gm IVPB over 20 minute(s), Rate: 50 mL/hr, Dispensed: 50 mL bag, Site: #2 left AC. Medication Ordered: Rocephin IV 2 gm/50mL (NOW). Given 16:45 08/28/2016 Gabriel Santos R.N. Medication Administered: ZITHROMAX [PO], Dose: 500 mg Tablets PO. Medication Ordered: Zithromax PO 500 mg (NOW). Given 17:25 08/28/2016 Gabriel Santos R.N. Medication Administered: ACETAMINOPHEN [PO] (APAP), Dose: 650 mg Tablets PO. Medication Ordered: Acetaminophen PO 650 mg (NOW).
== END 2016-08-28 17:30 | disposition home or self-care (01) ==
LOC: ED SRH 12:07
DX: J15.9 Unspecified bacterial pneumonia (principal); E11.9 Type 2 diabetes mellitus without complications; F17.200 Nicotine dependence, unspecified, uncomplicated; Z87.09 Personal history of other diseases of the respiratory system
CPT/HCPCS: 83526; 90100; 90301; 90616; 91320; 91556; 92610; 92720; 93140; 94060; 95059

== ENCOUNTER 2016-10-30 10:17 | Emergency (ER) | payer OTHER ==
--- NOTE | 2016-10-30 11:40 | ED CLINICAL REPORT ---
Clinical Report - Physicians/Mid Levels [facility] [address] [place] [address] 10/30/2016 10:23 Patient: DEBBY BROWN Time Seen: 10:41. Arrived- By private vehicle. Historian- patient. HISTORY OF PRESENT ILLNESS The patient sustained a burn to the right upper extremity - right hand, right middle finger and right ring finger. Chief Complaint: BURN. The injury occurred just prior to arrival. The injury was due to hot oil. It occurred at work. The patient complains of moderate pain. There was no smoke inhalation. Patient did not fall. (Patient was at work at her job at [employer] when she was splashed by hot oil.). REVIEW OF SYSTEMS No difficulty breathing, chest pain, visual disturbance, hearing loss or numbness. No weakness, neck pain, nausea, easy bleeding or abrasions. No hematuria, spine pain or vomiting. No coughing up soot. All systems otherwise negative, except as recorded above. PAST HISTORY Problems: Diabetes Mellitus. Asthma. Epistaxis. Ureterolithiasis. LNMP - Last Normal Menstrual Period. Near Syncope. Gastritis. Threatened . . Additional Surgeries: Cholecystectomy. . Medications: MetFORMIN HCl Oral 500 mg, daily. Albuterol Sulfate Inhalation (Has been out for a year). Depo-Provera Intramuscular. Allergies: None. SOCIAL HISTORY Smoker- current status unknown. Alcohol use. History of drug use: marijuana. ADDITIONAL NOTES The nursing notes have been reviewed. PHYSICAL EXAM Vital Signs: 10/30/2016 10:29 BP: 128/90. HR: 110. RR: 20. O2 saturation: 99%. Temp: 98 F. Pain level now: 8/10. Have been reviewed. Appearance: Alert. Oriented X3. No acute distress. Head: Head atraumatic. Eyes: Pupils equal, round and reactive to light. EOM intact. ENT: Normal external inspection. Neck: Painless ROM. CVS: Pulses normal. Respiratory: No respiratory distress. Back: ROM normal. Skin: No abrasions or lacerations. Right dorsum: small 1st degree burn. Right middle finger: small 2nd degree burn dorsal aspect. Right ring finger: small 2nd degree burn dorsal aspect. Extremities: Extremities exhibit normal ROM. Neuro: No motor deficit. No sensory deficit. (Grossly normal.). LABS, X-RAYS, AND EKG Pulse Oximetry: 10/30/2016 10:29 O2 saturation: 99%. (FIO2 - room air). Interpretation: normal. PROGRESS AND PROCEDURES Course of Care: A Silvadene dressing was placed and the patient's butcher. She did not have any debridable bullae. Patient counseled in person regarding the patient's stable condition, diagnosis and need for follow-up. Concerns were addressed. Old medical records reviewed. Disposition: Discharged. Condition: stable. CLINICAL IMPRESSION Multiple thermal butcher to the dorsum of the right hand, to the right middle finger and to the right ring finger. BSA of 1st degree burn = less than 10% (approximately). BSA of 2nd degree burn = less than 10% (approximately). INSTRUCTIONS Protect area of burn and keep clean. Change dressing daily. You may wash wounds briefly, then dry. Warnings: GENERAL WARNINGS: Return or contact your physician immediately if your condition worsens or changes unexpectedly, if not improving as expected, or if other problems arise. Your Current Medications: CONTINUE TAKING THE FOLLOWING MEDICATIONS: Albuterol Sulfate Inhalation : Has been out for a year. Depo-Provera Intramuscular. MetFORMIN HCl Oral : 500 mg daily. Prescription Medications: Hydrocodone/APAP 5mg / 325mg: take 1 orally every 6 hours as needed for pain. Dispense five (5). No refill. Ibuprofen 800 mg tablets: take 1 tablet orally every 8 hours as needed for pain. Dispense fifteen (15). No refill. Silvadene cream 1% : apply to affected area twice daily until better. Dispense twenty (20) grams. No refill. Substitution is permissible Follow-up: Follow up with your doctor as needed. Understanding of the discharge instructions verbalized by patient. (Electronically signed by Merle Aguilar MD 11/03/2016 22:52)
--- NOTE | 2016-10-30 11:40 | ED ORDER SUMMARY ---
..... Patient: DEBBY BROWN OrderSheet [facility] VisitID: [id number] [address] [place] [address] 26y, F Registration Date/Time: 10/30/2016 ORDER SHEET Weight: 108.8 kg (stated) Allergies: None GENERAL ORDERS: MEDICATION ORDERS: Silvadene Cream Topical (Cream 1 %) 1 application (NOW) (11:38 10/30/2016 Luba HILL) (Ack 11:45 SRoberts R.N.) (12:30 SRoberts R.N.) IV FLUIDS: ORDER SHEET NOTES: [Electronically signed by Noelle Herndon R.N. (12:31 10/30/2016)] [Electronically signed by Merle Aguilar MD (22:52 11/03/2016)] [Electronically locked/signed by Noelle Herndon R.N. (12:31 10/30/2016)]
--- NOTE | 2016-10-30 11:40 | ED NURSING NOTES ---
Clinical Report - Nurses [facility] [address] [place] [address] 10/30/2016 10:23 Patient: DEBBY BROWN TRIAGE Triage time 10:28. Acuity: LEVEL 3. Chief Complaint: BURN FROM HOT LIQUID. Alert. No acute distress. DARCY COMA SCORE: [place] Coma Scale: 15- eyes open spontaneously (4); best verbal response- oriented x 4 (5); best motor response- obeys commands (6). --10:36 Noelle Herndon R.N. 10:29 10/30/16. BP: 128/90. HR: 110. RR: 20. O2 saturation: 99%. Temp: 98 F (oral). Pain level now: 02/09. --10:36 Noelle Herndon R.N. Weight: 108.8 kg stated. Height/Length: 59 inches Per Patient. BMI: 48.5. --10:34 Noelle Herndon R.N. Medications Albuterol Sulfate Inhalation (Has been out for a year). Depo-Provera Intramuscular. --10:29 Noelle Herndon R.N. MetFORMIN HCl Oral 500 mg, daily. --10:34 Noelle Herndon R.N. Medication/allergy information source: the patient. --10:36 Noelle Herndon R.N. Allergies None. --10:29 Noelle Herndon R.N. History Arrived by private vehicle. Historian: patient. Location of injuries: right hand. This occurred just prior to arrival. Occurred at work. 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 Trauma activation: Pre-hospital notification of patient arrival was not received. PAST MEDICAL HX: Tetanus status: up-to-date. Uses depo injections. SOCIAL HX: Light tobacco smoker (cigarette)- less than 1/2 a pack per day. Occasional alcohol use. History of drug use: marijuana. Recently used drugs days ago. FALL RISK ASSESSMENT: Fall risk assessment completed. No fall risk identified. NUTRITIONAL RISK ASSESSMENT: The nutritional risk assessment revealed no deficiencies. FUNCTIONAL ASSESSMENT: Functional assessment: no impairments noted. LEARNING NEEDS ASSESSMENT: The learning needs assessment revealed no barriers. SKIN INTEGRITY ASSESSMENT: Skin integrity risk assessment completed. No skin integrity risk identified. --10:36 Noelle Herndon R.N. PROBLEMS: Pneumonia. Diabetes Mellitus. Asthma. Laceration. Epistaxis. Ureterolithiasis. Abdominal Pain. Near Syncope. Gastritis. --10:30 Noelle Herndon R.N. ADDITIONAL SURGERIES: Cholecystectomy. . --10:30 Noelle Herndon R.N. Interventions ID band on patient. To room. --10:36 Noelle Herndon R.N. PHYSICAL ASSESSMENT GENERAL / NEURO / PSYCH: Alert. Oriented X 4. Appears in no acute distress. RESPIRATORY: Respirations not labored. GI / : Abdomen nontender. EXTREMITIES: Skin intact on the extremities. SKIN: Skin is warm and dry. She has a blister located on the right hand, right second finger, right third finger and right fourth finger. --10:37 Noelle Herndon R.N. NURSING PROGRESS NOTES Cold pack applied. Extremity elevated. Two patient identifiers checked. Call light placed in reach. Side rails up x 1. Bed placed in lowest position. Brakes of bed on. Patient ready for evaluation. --10:37 Noelle Herndon R.N. ( silvedene to right hand and dressed with conform.). --11:39 Amy Natarajan ER Tech1 11:30 10/30/2016 SILVADENE CREAM (Silver Sulfadiazine) Topical 1 application. Allergies verified and confirmed 5 rights. (rt hand). --12:30 Noelle Herndon R.N. DISPOSITION / DISCHARGE No learning barriers present. Discharge instructions provided and reviewed with the patient. Reviewed medication(s) side effects, precautions, dosing and course information. Prescription(s) given to the patient. Patient verbalized understanding. Written instructions provided in Yakut. The patient was discharged home. She left the Emergency Department ambulatory and via private vehicle. Patient driving. Medication list reviewed and validated. --12:28 Noelle Herndon R.N. 11:45 10/30/16. BP: 118/78. HR: 77. RR: 16. O2 saturation: 96% on room air. Temp: deferred. Pain level now: 09/09. 10:29 10/30/16. BP: 128/90. HR: 110. RR: 20. O2 saturation: 99%. Temp: 98 F (oral). Pain level now: 02/09. --12:28 Noelle Herndon R.N. Locked/Released at 10/30/2016 12:31 by Noelle Herndon R.N.
--- NOTE | 2016-10-30 11:40 | ED NURSING NOTES ---
Clinical Report - Nurses [facility] [address] [place] [address] 10/30/2016 10:23 Patient: DEBBY BROWN TRIAGE Triage time 10:28. Acuity: LEVEL 3. Chief Complaint: BURN FROM HOT LIQUID. Alert. No acute distress. DARCY COMA SCORE: [place] Coma Scale: 15- eyes open spontaneously (4); best verbal response- oriented x 4 (5); best motor response- obeys commands (6). --10:36 Noelle Herndon R.N. 10:29 10/30/16. BP: 128/90. HR: 110. RR: 20. O2 saturation: 99%. Temp: 98 F (oral). Pain level now: 02/09. --10:36 Noelle Herndon R.N. Weight: 108.8 kg stated. Height/Length: 59 inches Per Patient. BMI: 48.5. --10:34 Noelle Herndon R.N. Medications Albuterol Sulfate Inhalation (Has been out for a year). Depo-Provera Intramuscular. --10:29 Noelle Herndon R.N. MetFORMIN HCl Oral 500 mg, daily. --10:34 Noelle Herndon R.N. Medication/allergy information source: the patient. --10:36 Noelle Herndon R.N. Allergies None. --10:29 Noelle Herndon R.N. History Arrived by private vehicle. Historian: patient. Location of injuries: right hand. This occurred just prior to arrival. Occurred at work. 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 Trauma activation: Pre-hospital notification of patient arrival was not received. PAST MEDICAL HX: Tetanus status: up-to-date. Uses depo injections. SOCIAL HX: Light tobacco smoker (cigarette)- less than 1/2 a pack per day. Occasional alcohol use. History of drug use: marijuana. Recently used drugs days ago. FALL RISK ASSESSMENT: Fall risk assessment completed. No fall risk identified. NUTRITIONAL RISK ASSESSMENT: The nutritional risk assessment revealed no deficiencies. FUNCTIONAL ASSESSMENT: Functional assessment: no impairments noted. LEARNING NEEDS ASSESSMENT: The learning needs assessment revealed no barriers. SKIN INTEGRITY ASSESSMENT: Skin integrity risk assessment completed. No skin integrity risk identified. --10:36 Noelle Herndon R.N. PROBLEMS: Pneumonia. Diabetes Mellitus. Asthma. Laceration. Epistaxis. Ureterolithiasis. Abdominal Pain. Near Syncope. Gastritis. --10:30 Noelle Herndon R.N. ADDITIONAL SURGERIES: Cholecystectomy. . --10:30 Noelle Herndon R.N. Interventions ID band on patient. To room. --10:36 Noelle Herndon R.N. PHYSICAL ASSESSMENT GENERAL / NEURO / PSYCH: Alert. Oriented X 4. Appears in no acute distress. RESPIRATORY: Respirations not labored. GI / : Abdomen nontender. EXTREMITIES: Skin intact on the extremities. SKIN: Skin is warm and dry. She has a blister located on the right hand, right second finger, right third finger and right fourth finger. --10:37 Noelle Herndon R.N. NURSING PROGRESS NOTES Cold pack applied. Extremity elevated. Two patient identifiers checked. Call light placed in reach. Side rails up x 1. Bed placed in lowest position. Brakes of bed on. Patient ready for evaluation. --10:37 Noelle Herndon R.N. ( silvedene to right hand and dressed with conform.). --11:39 Amy Natarajan ER Tech1 11:30 10/30/2016 SILVADENE CREAM (Silver Sulfadiazine) Topical 1 application. Allergies verified and confirmed 5 rights. (rt hand). --12:30 Noelle Herndon R.N. DISPOSITION / DISCHARGE No learning barriers present. Discharge instructions provided and reviewed with the patient. Reviewed medication(s) side effects, precautions, dosing and course information. Prescription(s) given to the patient. Patient verbalized understanding. Written instructions provided in Greenlandic. The patient was discharged home. She left the Emergency Department ambulatory and via private vehicle. Patient driving. Medication list reviewed and validated. --12:28 Noelle Herndon R.N. 11:45 10/30/16. BP: 118/78. HR: 77. RR: 16. O2 saturation: 96% on room air. Temp: deferred. Pain level now: 09/09. 10:29 10/30/16. BP: 128/90. HR: 110. RR: 20. O2 saturation: 99%. Temp: 98 F (oral). Pain level now: 02/09. --12:28 Noelle Herndon R.N. Locked/Released at 10/30/2016 12:31 by Noelle Herndon R.N.
--- NOTE | 2016-10-30 11:40 | ED ORDER SUMMARY ---
..... Patient: DEBBY BROWN OrderSheet [facility] VisitID: [id number] [address] [place] [address] 26y, F Registration Date/Time: 10/30/2016 ORDER SHEET Weight: 108.8 kg (stated) Allergies: None GENERAL ORDERS: MEDICATION ORDERS: Silvadene Cream Topical (Cream 1 %) 1 application (NOW) (11:38 10/30/2016 Luba HILL) (Ack 11:45 SRoberts R.N.) (12:30 SRoberts R.N.) IV FLUIDS: ORDER SHEET NOTES: [Electronically signed by Noelle Herndon R.N. (12:31 10/30/2016)] [Electronically signed by Merle Aguilar MD (22:52 11/03/2016)] [Electronically locked/signed by Noelle Herndon R.N. (12:31 10/30/2016)]
--- NOTE | 2016-10-30 11:40 | ED CLINICAL REPORT ---
Clinical Report - Physicians/Mid Levels [facility] [address] [place] [address] 10/30/2016 10:23 Patient: DEBBY BROWN Time Seen: 10:41. Arrived- By private vehicle. Historian- patient. HISTORY OF PRESENT ILLNESS The patient sustained a burn to the right upper extremity - right hand, right middle finger and right ring finger. Chief Complaint: BURN. The injury occurred just prior to arrival. The injury was due to hot oil. It occurred at work. The patient complains of moderate pain. There was no smoke inhalation. Patient did not fall. (Patient was at work at her job at [employer] when she was splashed by hot oil.). REVIEW OF SYSTEMS No difficulty breathing, chest pain, visual disturbance, hearing loss or numbness. No weakness, neck pain, nausea, easy bleeding or abrasions. No hematuria, spine pain or vomiting. No coughing up soot. All systems otherwise negative, except as recorded above. PAST HISTORY Problems: Diabetes Mellitus. Asthma. Epistaxis. Ureterolithiasis. LNMP - Last Normal Menstrual Period. Near Syncope. Gastritis. Threatened . . Additional Surgeries: Cholecystectomy. . Medications: MetFORMIN HCl Oral 500 mg, daily. Albuterol Sulfate Inhalation (Has been out for a year). Depo-Provera Intramuscular. Allergies: None. SOCIAL HISTORY Smoker- current status unknown. Alcohol use. History of drug use: marijuana. ADDITIONAL NOTES The nursing notes have been reviewed. PHYSICAL EXAM Vital Signs: 10/30/2016 10:29 BP: 128/90. HR: 110. RR: 20. O2 saturation: 99%. Temp: 98 F. Pain level now: 8/10. Have been reviewed. Appearance: Alert. Oriented X3. No acute distress. Head: Head atraumatic. Eyes: Pupils equal, round and reactive to light. EOM intact. ENT: Normal external inspection. Neck: Painless ROM. CVS: Pulses normal. Respiratory: No respiratory distress. Back: ROM normal. Skin: No abrasions or lacerations. Right dorsum: small 1st degree burn. Right middle finger: small 2nd degree burn dorsal aspect. Right ring finger: small 2nd degree burn dorsal aspect. Extremities: Extremities exhibit normal ROM. Neuro: No motor deficit. No sensory deficit. (Grossly normal.). LABS, X-RAYS, AND EKG Pulse Oximetry: 10/30/2016 10:29 O2 saturation: 99%. (FIO2 - room air). Interpretation: normal. PROGRESS AND PROCEDURES Course of Care: A Silvadene dressing was placed and the patient's butcher. She did not have any debridable bullae. Patient counseled in person regarding the patient's stable condition, diagnosis and need for follow-up. Concerns were addressed. Old medical records reviewed. Disposition: Discharged. Condition: stable. CLINICAL IMPRESSION Multiple thermal butcher to the dorsum of the right hand, to the right middle finger and to the right ring finger. BSA of 1st degree burn = less than 10% (approximately). BSA of 2nd degree burn = less than 10% (approximately). INSTRUCTIONS Protect area of burn and keep clean. Change dressing daily. You may wash wounds briefly, then dry. Warnings: GENERAL WARNINGS: Return or contact your physician immediately if your condition worsens or changes unexpectedly, if not improving as expected, or if other problems arise. Your Current Medications: CONTINUE TAKING THE FOLLOWING MEDICATIONS: Albuterol Sulfate Inhalation : Has been out for a year. Depo-Provera Intramuscular. MetFORMIN HCl Oral : 500 mg daily. Prescription Medications: Hydrocodone/APAP 5mg / 325mg: take 1 orally every 6 hours as needed for pain. Dispense five (5). No refill. Ibuprofen 800 mg tablets: take 1 tablet orally every 8 hours as needed for pain. Dispense fifteen (15). No refill. Silvadene cream 1% : apply to affected area twice daily until better. Dispense twenty (20) grams. No refill. Substitution is permissible Follow-up: Follow up with your doctor as needed. Understanding of the discharge instructions verbalized by patient. (Electronically signed by Merle Aguilar MD 11/03/2016 22:52)
--- NOTE | 2016-11-03 22:53 | ED MAR SUMMARY ---
..... Medication Administration Record [facility] [address] [place] [address] Patient: DEBBY BROWN Visit ID: [id number] 26y, F Weight: 108.8 kg Height/Length: 59 in BMI: 48.5 ALLERGIES: None Given 11:30 10/30/2016 Noelle Herndon R.N. Medication Administered: SILVADENE CREAM [TOPICAL] (SILVER SULFADIAZINE), Dose: 1 application Topical. Medication Ordered: Silvadene Cream Topical (Cream 1 %) 1 application (NOW).
--- NOTE | 2016-11-03 22:53 | ED MED RECONCILIATION SUMMARY ---
Patient: DEBBY BROWN Medication Reconciliation Report [facility] VisitID: [id number] [address] [place] [address] 26y, F Registration Date/Time: 10/30/2016 Weight: 108.8 kg Height/Length: 59 in. BMI: 48.5 ALLERGIES: None The patient's Home Medications are listed below: CONTINUE TAKING THE FOLLOWING MEDICATIONS: Albuterol Sulfate Inhalation, Has been out for a year Depo-Provera Intramuscular MetFORMIN HCl Oral 500 mg, daily The source(s) of the original Home Medication information: patient The following Medications were given to the patient in the Emergency Department: SILVADENE CREAM [TOPICAL] Topical 1 application, administered: 10/30/2016 11:30:00 AM The following Medications were prescribed to the patient: Hydrocodone/APAP 5mg / 325mg: take 1 orally every 6 hours as needed for pain. Dispense five (5). No refill. -- Merle Aguilar MD Ibuprofen 800 mg tablets: take 1 tablet orally every 8 hours as needed for pain. Dispense fifteen (15). No refill. -- Merle Aguilar MD Silvadene cream 1% : apply to affected area twice daily until better. Dispense twenty (20) grams. No refill. Substitution is permissible -- Merle Aguilar MD
--- NOTE | 2016-11-03 22:53 | ED MAR SUMMARY ---
..... Medication Administration Record [facility] [address] [place] [address] Patient: DEBBY BROWN Visit ID: [id number] 26y, F Weight: 108.8 kg Height/Length: 59 in BMI: 48.5 ALLERGIES: None Given 11:30 10/30/2016 Noelle Herndon R.N. Medication Administered: SILVADENE CREAM [TOPICAL] (SILVER SULFADIAZINE), Dose: 1 application Topical. Medication Ordered: Silvadene Cream Topical (Cream 1 %) 1 application (NOW).
--- NOTE | 2016-11-03 22:53 | ED MED RECONCILIATION SUMMARY ---
Patient: DEBBY BROWN Medication Reconciliation Report [facility] VisitID: [id number] [address] [place] [address] 26y, F Registration Date/Time: 10/30/2016 Weight: 108.8 kg Height/Length: 59 in. BMI: 48.5 ALLERGIES: None The patient's Home Medications are listed below: CONTINUE TAKING THE FOLLOWING MEDICATIONS: Albuterol Sulfate Inhalation, Has been out for a year Depo-Provera Intramuscular MetFORMIN HCl Oral 500 mg, daily The source(s) of the original Home Medication information: patient The following Medications were given to the patient in the Emergency Department: SILVADENE CREAM [TOPICAL] Topical 1 application, administered: 10/30/2016 11:30:00 AM The following Medications were prescribed to the patient: Hydrocodone/APAP 5mg / 325mg: take 1 orally every 6 hours as needed for pain. Dispense five (5). No refill. -- Merle Aguilar MD Ibuprofen 800 mg tablets: take 1 tablet orally every 8 hours as needed for pain. Dispense fifteen (15). No refill. -- Merle Aguilar MD Silvadene cream 1% : apply to affected area twice daily until better. Dispense twenty (20) grams. No refill. Substitution is permissible -- Merle Aguilar MD
--- NOTE | 2016-11-03 22:53 | ED DISCHARGE INSTRUCTIONS ---
Patient: DEBBY BROWN General Instructions [facility] VisitID: [id number] [place] [address] 26y, F Registration Date/Time: 10/30/2016 Multiple thermal butcher to the dorsum of the right hand, to the right middle finger and to the right ring finger. BSA of 1st degree burn = less than 10% (approximately). BSA of 2nd degree burn = less than 10% (approximately). INSTRUCTIONS Protect area of burn and keep clean. Change dressing daily. You may wash wounds briefly, then dry. Warnings: GENERAL WARNINGS: Return or contact your physician immediately if your condition worsens or changes unexpectedly, if not improving as expected, or if other problems arise. Your Current Medications: CONTINUE TAKING THE FOLLOWING MEDICATIONS: Albuterol Sulfate Inhalation : Has been out for a year. Depo-Provera Intramuscular. MetFORMIN HCl Oral : 500 mg daily. Prescription Medications: Hydrocodone/APAP 5mg / 325mg: take 1 orally every 6 hours as needed for pain. Dispense five (5). No refill. Ibuprofen 800 mg tablets: take 1 tablet orally every 8 hours as needed for pain. Dispense fifteen (15). No refill. Silvadene cream 1% : apply to affected area twice daily until better. Dispense twenty (20) grams. No refill. Substitution is permissible Follow-up: Follow up with your doctor as needed. Understanding of the discharge instructions verbalized by patient. ADDITIONAL INFORMATION Butcher [1', 2', 3'] A burn occurs when skin is exposed to excessive heat, sun, or harsh chemicals. A first degree burn causes redness only, like a sunburn, and heals in a few days. A second degree burn is deeper and causes a blister to form. This may take up to two weeks to heal. A third degree burn damages all layers of the skin and is very serious. It may take a month or more to heal. Home Care On the first day, you may apply a cool compress (small towel soaked in cool water) to relieve severe pain. If a bandage was applied, change it once a day, unless told otherwise. If the bandage sticks, soak it off under warm running water. Before changing a bandage, wash your hands. Then, wash the area with soap and water to remove any cream, ointment, ooze or scab. You may do this in a sink, under a tub faucet or in the shower. Rinse off the soap and pat dry with a clean towel. Look for signs of infection listed below. Reapply any prescribed cream/ointment to prevent infection and keep the bandage from sticking. Cover the burn with a non-stick gauze. Then wrap it with the bandage material. If the bandage becomes wet or soiled, change it as soon as possible. Use acetaminophen (Tylenol) or ibuprofen (Motrin, Advil) to control pain, unless another pain medicine was prescribed. [NOTE: If you have chronic liver or kidney disease or ever had a stomach ulcer or GI bleeding, talk with your doctor before using these medications.] Follow Up with your doctor or as advised by our staff. Most butcher heal without infection. Occasionally, an infection may occur despite proper treatment. Therefore, check the burn daily for the signs of infection listed below. Get Prompt Medical Attention if any of the following signs of infection occur: Increasing pain in the wound Increasing redness, swelling or pus coming from the wound Red streaks in your skin coming from the burn Fever of 100.4 F (38 C) or higher, or as directed by your healthcare provider You have been given the following additional information: Burn, Thermal, (1'2'3') W/ Dressing (Electronically signed by Merle Aguilar MD 11/03/2016 22:52)
== END 2016-10-30 11:50 | disposition home or self-care (01) ==
LOC: ED SRH 10:17
DX: T23.231A Burn of second degree of multiple right fingers (nail), not including thumb, initial encounter (principal); T23.101A Burn of first degree of right hand, unspecified site, initial encounter; X10.2XXA Contact with fats and cooking oils, initial encounter; Y93.89 Activity, other specified; Y92.89 Other specified places as the place of occurrence of the external cause; Y99.0 Civilian activity done for income or pay; E11.9 Type 2 diabetes mellitus without complications; J45.909 Unspecified asthma, uncomplicated; Z79.84 Long term (current) use of oral hypoglycemic drugs; Z79.899 Other long term (current) drug therapy